=== PATIENT | male | born 1985 | race Caucasian/White ===

== ENCOUNTER 2019-11-19 19:56 | Emergency (ER) | payer MEDICAID ==
[~2019-11-19] VITALS: Ht 182.9 cm; Wt 115.7 kg
[2019-11-19 20:10] VITALS: BP_SYST 115
[2019-11-19] MEDS ORDERED: SULFAMETHOXAZOLE/TRIMETHOPR DS 1 TABLET PO ONE (22:00)
[2019-11-19] MEDS ORDERED: CEPHALEXIN 500 MG CAPSULE PO ONE (22:00)
[2019-11-19 22:20] VITALS: BP_SYST 115
== END 2019-11-19 22:20 | disposition home or self-care (01) ==
LOC: SED 19:56
DX: K61.1 Rectal abscess (principal)
CPT/HCPCS: 99283

== ENCOUNTER 2021-08-28 17:18 | Emergency (ER) | payer MEDICAID, OTHER ==
[~2021-08-28] VITALS: Ht 185.4 cm; Wt 119.3 kg
[2021-08-28 17:56] VITALS: BP_SYST 130
--- NOTE | 2021-08-28 18:15 | NUR ---
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 Patient has a 3 cm laceration below the left knee. Bleeding controlled. Pain 5 out of 10. Patient is not up-to-date on tetanus vaccine. Patient also has abrasions to right upper thigh and right lower leg. Patient also complains of pain to left ankle and back of neck. Patient denies any KO. No other complaints per patient or as noted. notified
--- NOTE | 2021-08-28 18:15 | NUR ---
Patient to ER bed 07 to gown for evaluation. Side rails up. Report given to EMRE Watson
--- NOTE | 2021-08-28 18:42 | NUR ---
ED physician at the bedside
[2021-08-28] MEDS ORDERED: DIPH-TET-PERTUS Vaccine 0.5 ML VIAL (ADACEL) I.M. ONE (19:00)
[2021-08-28] MEDS ORDERED: LIDOCAINE/EPI 1% 1:100000 20 ML VIAL INJ ONE (19:00)
--- NOTE | 2021-08-28 19:05 | NUR ---
ED physician sutured laceration to LE.
[2021-08-28 19:31] VITALS: BP_SYST 126
--- NOTE | 2021-08-28 19:31 | NUR ---
Patient given written and verbal discharge instructions and verbalizes understanding. ER MD discussed with patient the results and treatment provided. Patient in stable condition. ID arm band removed. Patient educated on pain management and to follow up with PMD. Pain Scale 0/10 Opportunity for questions provided and answered.
== END 2021-08-28 19:31 | disposition home or self-care (01) ==
LOC: SED 17:18
DX: S81.812A Laceration without foreign body, left lower leg, initial encounter (principal); W45.8XXA Other foreign body or object entering through skin, initial encounter; Y93.89 Activity, other specified; Y92.89 Other specified places as the place of occurrence of the external cause; Y99.0 Civilian activity done for income or pay
CPT/HCPCS: 73590-TC; 90715; 99284